=== PATIENT | male | born 1960 | race Caucasian/White ===

== ENCOUNTER 2020-02-21 00:23 | Inpatient (IN) | payer MEDICAID ==
[~2020-02-21] VITALS: Ht 167.6 cm; Wt 97.5 kg
[2020-02-21] MEDS ORDERED: SODIUM CHLORIDE 0.9% 1,000 ML IV ONE (00:47)
[2020-02-21] MEDS ORDERED: ONDANSETRON HCL 4MG/2ML INJ IV STA (00:47)
[2020-02-21 01:18] LABS: CHLORIDE 110 mEq/L (98-107)
[2020-02-21 01:19] LABS: BASOPHILS % 0.6 % (0.0-2.0); EOSINOPHILS % 3.5 % (0.0-5.0); HEMATOCRIT. 42.2 % (42.0-52.0); HEMOGLOBIN. 15.1 g/dL (14.0-18.0); LYMPHOCYTES % 26.1 % (20.0-50.0); MEAN CORPUSCULAR HEMOGLOBIN 30.2 pg (28.0-32.0); MEAN CORPUSCULAR VOLUME 84.5 fL (80.0-94.0); MEAN PLATELET VOLUME 9.7 fl (7.4-10.4); MONOCYTES % 6.9 % (2.0-8.0); NEUTROPHILS % 62.9 % (40.0-76.0); PLATELET 150 x1000/uL (130-400)
[2020-02-21 01:22] LABS: ETHANOL BLOOD 289 mg/dL
[2020-02-21 01:26] LABS: *AMPHETAMINES SCREEN URINE NEGATIVE (NEGATIVE); *BARBITURATES SCREEN URINE NEGATIVE (NEGATIVE); *BENZODIAZEPINES SCREEN URINE NEGATIVE (NEGATIVE); *COCAINE SCREEN URINE NEGATIVE (NEGATIVE)
[2020-02-21 01:27] LABS: CANNABINOID URINE SCREEN NEGATIVE (NEGATIVE); METHADONE URINE SCREEN NEGATIVE (NEGATIVE); OPIATES URINE SCREEN NEGATIVE (NEGATIVE); PHENCYCLIDINE URINE SCREEN NEGATIVE (NEGATIVE)
[2020-02-21] MEDS ORDERED: MIDAZOLAM HCL 2 MG/2 ML VIAL IV ONE (02:15)
[2020-02-21] MEDS ORDERED: IOHEXOL-300 100 ML BOTTLE ONE (02:35)
[2020-02-21] MEDS ORDERED: KETOROLAC 15MG/ML VIAL IV PRN (06:30)
[2020-02-21] MEDS ORDERED: MAGNESIUM/ALUMINUM HYDROXIDE/SIMETHICONE 30ML UDC PO PRN (06:30)
[2020-02-21] MEDS ORDERED: ACETAMINOPHEN 325MG TABLET PO PRN ×2 (06:30)
[2020-02-21] MEDS ORDERED: GUAIFENESIN 200MG/10ML SUGAR FREE UDC PO PRN (06:30)
[2020-02-21] MEDS ORDERED: POTASSIUM CHLORIDE 20MEQ TABLET SR PO SCH (06:30)
[2020-02-21] MEDS ORDERED: IPRATROPIUM/ALBUTEROL 0.5-3(2.5)MG/3ML NEB ORI PRN (06:30)
[2020-02-21] MEDS ORDERED: ONDANSETRON HCL 4MG/2ML INJ IV PRN (06:30)
[2020-02-21] MEDS ORDERED: DOCUSATE SODIUM 100MG CAPSULE PO PRN (06:30)
[2020-02-21] MEDS ORDERED: NITROGLYCERIN 0.4MG TABLET SL SL PRN (06:30)
[2020-02-21] MEDS ORDERED: MVI, ADULT NO.1 10 ML, FOLIC ACID 1 MG, THIAMINE HCL 100 MG in SODIUM CHLORIDE 0.9% 1,0... IV ONE ×4 (07:00)
[2020-02-21] MEDS ORDERED: KCL 20MEQ/100ML PREMIX 100 ML IV ONE (07:00)
[2020-02-21] MEDS: PIPERACILLIN/TAZ 3.375G PREMIX 50 ML IV SCH ×2 (07:49→14:57)
[2020-02-21] MEDS ORDERED: ENOXAPARIN 40MG/0.4ML SYR SUBCUT SCH (09:00)
[2020-02-21] MEDS: ASCORBIC ACID 500 MG TABLET PO SCH ×2 (11:06→23:47)
[2020-02-21] MEDS: FAMOTIDINE 20MG TABLET PO SCH ×2 (11:06→23:49)
[2020-02-21] MEDS: ZINC SULFATE 220 MG ( 50 ) CAPSULE PO SCH (11:07)
[2020-02-21] MEDS ORDERED: DEXTROSE 50% WATER 50ML SYRINGE IV PRN (15:00)
[2020-02-21] MEDS: BLOOD SUGAR DIAGNOSTIC STRIP TEST SCH ×2 (17:59→23:48)
[2020-02-21] MEDS: INSULIN LISPRO 100 UNITS/ML SUBCUT SCH ×2 (18:02→21:00)
[2020-02-21] MEDS: CLONIDINE 0.1MG TABLET PO PRN (20:13)
[2020-02-21 21:05] LABS: CREATINE KINASE MB FRACTION 8.4 ng/mL (0.5-3.6)
[2020-02-21 22:21] VITALS: BP 167/77
[2020-02-21] MEDS: ZOLPIDEM TARTRATE 5MG TABLET PO PRN (23:48)
[2020-02-21] MEDS: ASPIRIN 325MG EC TABLET PO SCH (23:48)
[2020-02-21] MEDS: ATORVASTATIN CALCIUM 10MG TABLET PO SCH (23:48)
[2020-02-21] MEDS: ENOXAPARIN 100MG/ML SYR SUBCUT SCH (23:49)
[2020-02-22] VITALS: BP 158/82
[2020-02-22] MEDS: PIPERACILLIN/TAZOBACTAM 3.375 G in DEXT 5% WATER 100 ML IV SCH ×3 (00:16→16:00)
[2020-02-22 00:48] LABS: PROTHROMBIN TIME 10.9 sec (9.6-11.0)
[2020-02-22 04:00] VITALS: BP 126/89
[2020-02-22] MEDS: CLONIDINE 0.1MG TABLET PO PRN ×2 (04:31→20:34)
[2020-02-22 05:39] LABS: CHLORIDE 110 mEq/L (98-107)
[2020-02-22 05:51] LABS: PHOSPHORUS 2.2 mg/dL (2.5-4.9)
[2020-02-22 07:51] LABS: BASOPHILS % 0.4 % (0.0-2.0); EOSINOPHILS % 1.8 % (0.0-5.0); HEMATOCRIT. 38.9 % (42.0-52.0); MEAN CORPUSCULAR HEMOGLOBIN 30.4 pg (28.0-32.0); MEAN CORPUSCULAR VOLUME 84.7 fL (80.0-94.0); MONOCYTES % 9.9 % (2.0-8.0); NEUTROPHILS % 69.9 % (40.0-76.0); PLATELET 135 x1000/uL (130-400); RED CELL DISTRIBUTION WIDTH 14.4 % (11.6-14.6)
[2020-02-22] MEDS: BLOOD SUGAR DIAGNOSTIC STRIP TEST SCH ×4 (07:51→20:34)
[2020-02-22] MEDS: INSULIN LISPRO 100 UNITS/ML SUBCUT SCH ×4 (07:55→21:00)
[2020-02-22] MEDS: ASCORBIC ACID 500 MG TABLET PO SCH ×2 (07:58→20:34)
[2020-02-22] MEDS: FAMOTIDINE 20MG TABLET PO SCH ×2 (07:58→20:34)
[2020-02-22] MEDS: ZINC SULFATE 220 MG ( 50 ) CAPSULE PO SCH (07:58)
[2020-02-22] MEDS: ASPIRIN 325MG EC TABLET PO SCH (07:58)
[2020-02-22] MEDS: ENOXAPARIN 100MG/ML SYR SUBCUT SCH (07:59)
[2020-02-22 08:06] VITALS: BP 160/71
[2020-02-22] MEDS ORDERED: POTASSIUM CHLORIDE 20MEQ/PACKET PO NR (09:00)
[2020-02-22 09:33] LABS: CREATINE KINASE MB FRACTION 3.3 ng/mL (0.5-3.6)
[2020-02-22] MEDS: POTASSIUM-SODIUM PHOSPHATE POWDER PACKET PO SCH ×2 (10:19→18:43)
[2020-02-22] MEDS: NITROGLYCERIN OINT 1GM/INCH UDPKT TD SCH ×4 (10:20→20:34)
[2020-02-22 12:09] VITALS: BP 144/75
[2020-02-22] MEDS ORDERED: HEPARIN 1,000 UNITS PREMIX 0 ML IV ONE (13:42)
[2020-02-22] MEDS ORDERED: MIDAZOLAM HCL 2 MG/2 ML VIAL ONE (13:42)
[2020-02-22] MEDS ORDERED: LIDOCAINE HCL 1% 20ML VIAL (Pyxis) INJ ONE (13:42)
[2020-02-22] MEDS ORDERED: FENTANYL CITRATE/PF 50MCG/ML 2ML VIAL ONE (13:42)
[2020-02-22] MEDS ORDERED: IODIXANOL 320MG/ML 200ML BOTTLE ONE (13:42)
[2020-02-22 16:08] VITALS: BP 151/86
[2020-02-22 20:00] VITALS: BP 190/97
[2020-02-22] MEDS: ATORVASTATIN CALCIUM 10MG TABLET PO SCH (20:34)
[2020-02-22] MEDS ORDERED: ENOXAPARIN 100MG/ML SYR SUBCUT SCH (21:00)
[2020-02-22] MEDS ORDERED: HYDRALAZINE 20MG/ML VIAL IV PRN (23:00)
[2020-02-23] VITALS (7 sets, daily range): BP systolic 137–156; BP diastolic 68–88
[2020-02-23] MEDS: PIPERACILLIN/TAZOBACTAM 3.375 G in DEXT 5% WATER 100 ML IV SCH ×5 (00:56→22:00)
[2020-02-23] MEDS: NITROGLYCERIN OINT 1GM/INCH UDPKT TD SCH ×6 (00:58→20:47)
[2020-02-23] MEDS: AMLODIPINE 10MG TABLET PO SCH ×2 (01:01→08:55)
[2020-02-23] MEDS: ZOLPIDEM TARTRATE 5MG TABLET PO PRN (01:02)
[2020-02-23] MEDS: METOPROLOL TARTRATE 25MG TABLET PO SCH ×2 (04:48→20:48)
[2020-02-23] MEDS: BLOOD SUGAR DIAGNOSTIC STRIP TEST SCH ×4 (06:25→20:48)
[2020-02-23 07:23] LABS: BASOPHILS % 0.7 % (0.0-2.0); EOSINOPHILS % 3.2 % (0.0-5.0); HEMATOCRIT. 36.1 % (42.0-52.0); HEMOGLOBIN. 12.8 g/dL (14.0-18.0); LYMPHOCYTES % 19.8 % (20.0-50.0); MEAN CORPUSCULAR VOLUME 84.4 fL (80.0-94.0); MEAN PLATELET VOLUME 10.4 fl (7.4-10.4); MONOCYTES % 10.3 % (2.0-8.0); PLATELET 132 x1000/uL (130-400); RED BLOOD CELL COUNT 4.27 mill/uL (4.7-6.1)
[2020-02-23] MEDS: INSULIN LISPRO 100 UNITS/ML SUBCUT SCH ×3 (07:50→20:49)
[2020-02-23 07:56] LABS: CHLORIDE 108 mEq/L (98-107)
[2020-02-23 08:04] LABS: PHOSPHORUS 2.3 mg/dL (2.5-4.9)
[2020-02-23] MEDS: ZINC SULFATE 220 MG ( 50 ) CAPSULE PO SCH (08:54)
[2020-02-23] MEDS: FAMOTIDINE 20MG TABLET PO SCH ×2 (08:54→20:48)
[2020-02-23] MEDS: POTASSIUM-SODIUM PHOSPHATE POWDER PACKET PO SCH ×2 (08:54→16:35)
[2020-02-23] MEDS: ASCORBIC ACID 500 MG TABLET PO SCH ×2 (08:55→20:48)
[2020-02-23] MEDS ORDERED: POTASSIUM CHLORIDE 20MEQ TABLET SR PO NR (10:15)
[2020-02-23] MEDS ORDERED: MIDAZOLAM HCL 2 MG/2 ML VIAL ONE (11:03)
[2020-02-23] MEDS ORDERED: LIDOCAINE HCL 1% 20ML VIAL (Pyxis) INJ ONE (11:04)
[2020-02-23] MEDS ORDERED: FENTANYL CITRATE/PF 50MCG/ML 2ML VIAL ONE (11:04)
[2020-02-23] MEDS ORDERED: IODIXANOL 320MG/ML 200ML BOTTLE ONE (11:04)
[2020-02-23] MEDS ORDERED: KCL 20MEQ/100ML PREMIX 100 ML IV ONE (12:01)
[2020-02-23] MEDS: IPRATROPIUM/ALBUTEROL 0.5-3(2.5)MG/3ML NEB HHN SCH (20:30)
[2020-02-23] MEDS: ATORVASTATIN CALCIUM 10MG TABLET PO SCH (20:47)
[2020-02-24] VITALS: BP 154/101
[2020-02-24] MEDS: IPRATROPIUM/ALBUTEROL 0.5-3(2.5)MG/3ML NEB HHN SCH ×3 (00:42→07:47)
[2020-02-24 02:00] VITALS: BP 125/54
[2020-02-24 04:00] VITALS: BP 131/70
[2020-02-24] MEDS: NITROGLYCERIN OINT 1GM/INCH UDPKT TD SCH ×3 (04:00→09:17)
[2020-02-24] MEDS: PIPERACILLIN/TAZOBACTAM 3.375 G in DEXT 5% WATER 100 ML IV SCH ×2 (05:09→09:19)
[2020-02-24 06:58] LABS: BASOPHILS % 0.6 % (0.0-2.0); HEMATOCRIT. 36.4 % (42.0-52.0); HEMOGLOBIN. 13.1 g/dL (14.0-18.0); LYMPHOCYTES % 15.6 % (20.0-50.0); MEAN CORPUSCULAR HEMOGLOBIN 30.2 pg (28.0-32.0); MEAN CORPUSCULAR VOLUME 84.1 fL (80.0-94.0); NEUTROPHILS % 71.8 % (40.0-76.0); PLATELET 137 x1000/uL (130-400); RED BLOOD CELL COUNT 4.32 mill/uL (4.7-6.1); RED CELL DISTRIBUTION WIDTH 13.7 % (11.6-14.6)
[2020-02-24] MEDS: BLOOD SUGAR DIAGNOSTIC STRIP TEST SCH (06:58)
[2020-02-24] MEDS: INSULIN LISPRO 100 UNITS/ML SUBCUT SCH (07:20)
[2020-02-24 07:53] LABS: CHLORIDE 107 mEq/L (98-107)
[2020-02-24 08:00] VITALS: BP 169/73
[2020-02-24] MEDS: ASCORBIC ACID 500 MG TABLET PO SCH (09:16)
[2020-02-24] MEDS: ZINC SULFATE 220 MG ( 50 ) CAPSULE PO SCH (09:16)
[2020-02-24] MEDS: FAMOTIDINE 20MG TABLET PO SCH (09:16)
[2020-02-24] MEDS: POTASSIUM-SODIUM PHOSPHATE POWDER PACKET PO SCH (09:17)
[2020-02-24] MEDS: AMLODIPINE 10MG TABLET PO SCH (09:18)
[2020-02-24] MEDS: METOPROLOL TARTRATE 25MG TABLET PO SCH (09:18)
[2020-02-24 09:30] VITALS: BP 166/83
[2020-02-24] MEDS ORDERED: POTASSIUM CHLORIDE 20MEQ TABLET SR PO SCH (10:15)
[2020-02-24 10:40] VITALS: BP 146/80
== END 2020-02-24 11:15 | disposition home or self-care (01) | DRG 190 ==
LOC: ER 00:23 → 6WST 06:23 → EDBEDREQ 07:50 → EDBEDREQTM 07:50 → ENRESERV 21:21 → CANRESERV 21:21 → ENRESERV 21:48 → 6WST 23:24 → 3WST 02-23 12:35
PROVIDERS: ADMIT Internal Medicine; ATTEND Internal Medicine
PROC: 4A023N7 Measurement of Cardiac Sampling and Pressure, Left Heart, Percutaneous Approach (ICD-10-PCS; principal; 2020-02-23)
PROC: B2111ZZ Fluoroscopy of Multiple Coronary Arteries using Low Osmolar Contrast (ICD-10-PCS; 2020-02-23)
PROC: B2151ZZ Fluoroscopy of Left Heart using Low Osmolar Contrast (ICD-10-PCS; 2020-02-23)
DX: I21.4 Non-ST elevation (NSTEMI) myocardial infarction (principal); G92 Toxic encephalopathy; E11.9 Type 2 diabetes mellitus without complications; E83.51 Hypocalcemia; E78.5 Hyperlipidemia, unspecified; E87.6 Hypokalemia; F10.129 Alcohol abuse with intoxication, unspecified; I10 Essential (primary) hypertension; I49.3 Ventricular premature depolarization; Y90.8 Blood alcohol level of 240 mg/100 ml or more; Z79.84 Long term (current) use of oral hypoglycemic drugs; Z87.891 Personal history of nicotine dependence; Z79.899 Other long term (current) drug therapy
CPT/HCPCS: 36415; 71045; 71260; 72170; 74177; 80053; 80061; 80305; 80320; 82550; 82553; 82962; 83036; 83735; 83880; 84100; 84484; 85025; 86850; 86900; 93005; 93306; 93458; 93970; 94640; 99291; C1760; C1769; C1887; C1893; J0360; J1644; J1650; J1815; J1885; J2250; J2405; J2543; J3010; J3411; J3480; J3490; J7030; J7060; Q9967; C9803-CS; G0480; U0003-CS